=== PATIENT | female | born 2005 | race African-American/Black ===

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

== ENCOUNTER 2025-09-06 19:13 | Emergency (ER) | payer OTHER ==
[~2025-09-06] VITALS: Ht 154.9 cm; Wt 50.0 kg
[2025-09-06 19:49] VITALS: TEMP 98.2
[2025-09-06 20:08] LABS: COVID AG,FIA SOURCE NASAL SWAB
[2025-09-06 20:33] LABS: INFLUENZA TYPE A NEGATIVE FOR TYPE A (NEGATIVE); INFLUENZA TYPE B NEGATIVE FOR TYPE B (NEGATIVE); SARS-COV2 (COVID) ANTIGEN,FIA Negative (Negative)
[2025-09-06 20:34] LABS: PLATELET COUNT (AUTO) 162 K/uL (150-450); RED BLOOD CELL COUNT(AUTO) 4.23 MIL/uL (4.00-5.20); RED CELL DISTRIBUTION WIDTH 12.9 % (11.5-14.5); WHITE BLOOD COUNT (AUTO) 10.9 K/uL (4.5-11.0)
[2025-09-06 20:43] LABS: CALCIUM, TOTAL 8.6 mg/dL (8.8-10.5); CREATININE 0.73 mg/dL (0.60-1.30); GLOMERULAR FILTR. RATE CALC > 60 mL/min (>60); GLUCOSE,RANDOM 92 mg/dL (70-110); SODIUM SERUM 145 mmol/L (136-145); UREA NITROGEN, BLOOD 10 mg/dL (7-18)
[2025-09-06 20:55] LABS: TROPONIN I-HIGH SENSITIVITY Less Than 4 ng/L (<51)
[2025-09-06 21:20] VITALS: PULSE 83; RESP 16; O2SAT 99
[2025-09-06 21:23] VITALS: PULSE 82; RESP 17; O2SAT 94
[2025-09-06] MEDS: IPRATROPIUM BROMIDE 0.5 MG/2.5 ML NEB SOLUTION NEB ONE (21:25)
[2025-09-06] MEDS: ALBUTEROL SULFATE 2.5 MG/0.5 ML NEB SOLUTION NEB ONE (21:25)
[2025-09-06 21:27] VITALS: PULSE 83; RESP 16; O2SAT 99
[2025-09-06] MEDS ORDERED: PRED-554 PO (21:34)
[2025-09-06] MEDS ORDERED: ACET-2247 PO (21:34)
[2025-09-06] MEDS ORDERED: DOXY-354 PO (21:34)
[2025-09-06] MEDS: ALBUTEROL SULFATE HFA 90 MCG/PUFF 8 GM INHALER IH ONE (21:38)
[2025-09-06 21:40] VITALS: PULSE 84; RESP 16; O2SAT 99
[2025-09-06 21:56] VITALS: BP 111/61; PULSE 91; RESP 16; O2SAT 99
== END 2025-09-06 21:59 | disposition home or self-care (01) ==
LOC: EMS 19:50
DX: J45.901 Unspecified asthma with (acute) exacerbation (principal); R06.02 Shortness of breath; R05.9 Cough, unspecified; Z20.822 Contact with and (suspected) exposure to COVID-19
CPT/HCPCS: 99285; 71045; 87426; 80048; 84484; 84703; 85025; 87804; 36415; 94640; 93005; J7512; J3535; J7613